=== PATIENT | female | born 1970 | race Hispanic/Latino ===

== ENCOUNTER 2017-10-12 18:42 | Emergency (ER) | payer SELFPAY | END 2017-10-12 21:36 | disposition home or self-care (01) | LOC: ERS 18:42 | DX: F41.9 Anxiety disorder, unspecified (principal); I10 Essential (primary) hypertension; F32.9 Major depressive disorder, single episode, unspecified; Z87.891 Personal history of nicotine dependence | CPT/HCPCS: 99283 ==